=== PATIENT | male | born 1970 | race Caucasian/White ===

== ENCOUNTER → 2017-09-25 | Day surgery (SDC) | payer OTHER ==
[~2017-09-25] MED LIST: BENZ100 PO; BROMSYP PO; CYCL10TA PO; FLUT1SPR5 EACH NARE; HYDR25TA5 PO; IBUP1TAB7 PO; LACTATED RINGER'S 1000 ML INJ 1,000 ML ONE; MAGICADU2 SWISH-SWAL; METO100T PO; MOBI7.5T PO; PROPOFOL 200 MG/20 ML AMP IV ONE
== END | disposition home or self-care (01) ==
LOC: ESDC 07:36
PROVIDERS: ATTEND Internal Medicine Gastroenterology
DX: Z12.11 Encounter for screening for malignant neoplasm of colon (principal); Z80.0 Family history of malignant neoplasm of digestive organs; K64.8 Other hemorrhoids; R10.13 Epigastric pain; R11.0 Nausea; K22.2 Esophageal obstruction; K31.9 Disease of stomach and duodenum, unspecified
CPT/HCPCS: 00813; 43239; 45378; 88305; 88312; J3010; J7120